=== PATIENT | male | born 1990 | race Caucasian/White ===

== ENCOUNTER 2024-03-25 18:32 | Emergency (ER) | payer OTHER, SELFPAY ==
[2024-03-25 18:33] VITALS: BP 167/101; PULSE 114; RESP 18; TEMP 37.4; O2SAT 98; BMI 45.1
[2024-03-25 19:34] LABS: Absolute Lymphocyte Count 0.83 X10^3/uL (0.83-4.51); Absolute Neutrophil Count 7.6 X10^3/uL (2.0-7.7); Basophil# 0.08 X10^3/uL; Basophil% 0.8 % (0-1); Eosinophil# 0.03 X10^3/uL; Eosinophils% 0.3 % (0-5); Hematocrit 46.2 % (40-54); Hemoglobin 15.5 g/dL (13.0-16.5); Lymphocyte # 0.83 X10^3/ul (0.83-4.51); Lymphocyte % 8.6 % (19-41); Mean Corp Hgb Conc 33.5 g/dL (32-36); Mean Corpuscular Hgb 27.6 pg (27.0-32.0); Mean Corpuscular Volume 82.2 fL (80-94); Mean Platelet Vol. 10.9 fl (6.2-12.0); Monocyte# 1.08 X10^3/uL; Monocyte% 11.2 % (0-10); NRBC Flagged by Analyzer 0 % (0-5); Neutrophil % 78.9 % (47-70); Platelet Count 307 K/mm3 (150-450); RBC Distribution Width CV 13.2 % (11.6-14.6); RBC Distribution Width SD 39.5 fl (35.1-43.9); Red Blood Count 5.62 M/mm3 (4.6-6.2); White Blood Count 9.6 K/mm3 (4.4-11.0)
[2024-03-25] MEDS: 0.9% Normal Saline (1000mL) 1,000 ML 999 ML IV (19:37)
[2024-03-25 19:51] LABS: AST(SGOT) 16 U/L (15-37); Alanine Aminotransfer ALT/SGPT 27 U/L (16-61); Albumin, Serum 4.2 g/dL (3.2-5.0); Alkaline Phosphatase 67 U/L (45-117); Anion Gap 7 (5-15); BUN 11 mg/dL (7-18); BUN/Creat Ratio 9.9 RATIO (10-20); Calcium,Total 9.1 mg/dL (8.5-10.1); Chloride 102 mmol/L (98-107); Creatinine, Serum 1.11 mg/dL (0.70-1.30); EST Glomerular Filtration Rate 81 mL/min (>60); Est Glom Filt Rate - Afr Amer 98 mL/min (>60); Estimated Creatinine Clearance 135.04 ml/min; Glucose 98 mg/dL (74-106); Potassium 3.8 mmol/L (3.5-5.1); Protein, Total 8.2 g/dL (6.4-8.2); Sodium Level 134 mmol/L (136-145)
--- NOTE | 2024-03-25 19:54 | ED.VIS.GI ---
HPI HPI - GI History of Present Illness Chief Complaint: Abd Pain Narrative Narrative: Patient decided to start taking [id number] iron supplementation a couple weeks ago just to see if it made him feel better. He states that 2 days ago he started seeing black diarrhea stools although those are gone now, today he has been having diarrhea that is light brown with some occasional red flecks in it, and he has been having periumbilical abdominal cramping off and on throughout the day that is currently present. He had some red peppers in his food last night. An episode of nausea but has had no vomiting. Developed a fever later today. No respiratory symptoms. No known sick contacts with any of this. No recent travel out of the region, no recent antibiotics, no history of C. difficile. He ate some brautwurst recently but he measured the internal temperature to 165 before he ate them, no other suspicious food intake. [facility] Medical History no medical history Home Medications ?Medication ?Instructions ?Recorded ?Last Taken ?Type ciprofloxacin HCl 500 mg tablet 500 mg PO BID #6 TABLETS 03/25/24 Unknown Rx ferrous sulfate 325 mg (65 mg 325 mg PO DAILY 03/25/24 Unknown History iron) tablet (Feosol) promethazine 25 mg tablet 25 mg PO Q6H PRN PRN Nausea #10 03/25/24 Unknown Rx TABLETS Allergy/AdvReac Type Severity Reaction Status Date / Time No Known Allergies Allergy Verified 03/25/24 18:37 Surgical History no surgical history Social History Smoking Status: Never smoker [facility] ED Constitutional Constitutional ED: Reports chills and fever(s) Eyes Eyes: Denies change in vision or diplopia ENT ENT ED: Denies rhinorrhea or sore throat Cardiovascular Cardiovascular: Denies chest pain or palpitations Respiratory/Chest Respiratory/Chest: Denies cough or dyspnea Gastrointestinal Gastrointestinal: Reports abdominal pain, diarrhea and melena; Denies nausea or vomiting Genitourinary Genitourinary ED: Denies dysuria or hematuria Musculoskeletal Musculoskeletal: Denies back pain or neck pain Integumentary Denies abscess or rash Neurologic Neurologic: Denies headache(s), paresthesias or weakness Psychiatric Psychiatric: Denies anxiety or suicidal thoughts EXAM Physical Exam Const Vital Signs: 03/25/24 18:33 03/25/24 20:33 Temperature 99.4 F H Temperature Source Oral Pulse Rate 114 H 99 Respiratory Rate 18 16 Blood Pressure 167/101 H 155/97 H Blood Pressure Mean 123 116 Pulse Ox 98 98 Oxygen Delivery Method Room Air Room Air Positive well nourished, well developed and obese General Appearance ED: well developed and NAD Nutritional Appearance: obese HEENT Reports moist mucous membranes normocephalic and atraumatic Eyes PERRL and EOMs intact bilaterally Neck full ROM and supple Resp normal respiratory effort and clear to auscultation bilaterally Cardio regular rate, regular rhythm and no murmurs GI non-tender and non-distended Auscultation: normoactive bowel sounds Palpation: soft Back/Spine no CVA tenderness General Back: other FROM Extremity normal to inspection General Extremety ED: Negative for edema, pulses abnormal or tenderness General Extremity: Negative for edema or pulses abnormal Neuro oriented x3, CN's II-XII intact bilaterally and no sensory deficits noted Sensorium / Orientation: awake and alert Motor Exam: strength 5/5 throughout Psych mental status grossly normal and thought process normal Skin no rashes or lesions noted and no wounds MDM MDM MDM Narrative Medical decision making narrative: Patient was given IV fluids while we obtained a workup, and he provided diarrhea which I sent for enteric bacterial panel and Hemoccult. He did not have gross blood but the Hemoccult is positive suggesting what he saw earlier was not deep blood. He had 2 bouts of diarrhea after the specimen he provided here in the ER within a couple hours. His tachycardia normalized with the IV fluids, and he has a low-grade temperature. I think this is probably an infectious invasive enteritis. His fecal white blood cell smear came back positive supporting that. The enteric bacterial panel will not be performed during this day, it will be done tomorrow. Therefore I think treating him with empiric Cipro is reasonable. Discussed avoiding antidiarrheals for now until we know more with the enteric panel, it is certainly possible this is norovirus which there has been a relative epidemic of in the night states recently, in that case I would discontinue the Cipro, and he was advised to drink plenty of fluids and eat yogurt or take a probiotic while on the antibiotic and having diarrhea. Also while in the emergency department he became nauseated and vomited once when prescribed him some Phenergan as well. Lab Data Attestation: I reviewed the patient's lab results. Labs: Laboratory Results - last 24 hr 03/25/24 03/25/24 18:58 21:04 WBC 9.6 RBC 5.62 Hgb 15.5 Hct 46.2 MCV 82.2 MCH 27.6 MCHC 33.5 RDW Std Deviation 39.5 RDW Coeff of Mao 13.2 Plt Count 307 MPV 10.9 Immature Gran % (Auto) 0.200 Neut % (Auto) 78.9 H Lymph % (Auto) 8.6 L Meigs % (Auto) 11.2 H Eos % (Auto) 0.3 Baso % (Auto) 0.8 Absolute Neuts (auto) 7.6 Absolute Lymphs (auto) 0.83 Nucleated RBC % 0 Sodium 134 L Potassium 3.8 Chloride 102 Carbon Dioxide 25.0 Anion Gap 7 BUN 11 Creatinine 1.11 Estim Creat Clear Calc 135.04 Est GFR (MDRD) Af Amer 98 Est GFR (MDRD) Non-Af 81 BUN/Creatinine Ratio 9.9 L Glucose 98 Calcium 9.1 Total Bilirubin 0.70 AST 16 ALT 27 Alkaline Phosphatase 67 Total Protein 8.2 Albumin 4.2 Globulin 4.0 Albumin/Globulin Ratio 1.0 Urine Color Yellow Urine Clarity Clear Urine pH 6.0 Ur Specific [place] 1.015 Urine Protein 30 H Urine Glucose (UA) Normal Urine Ketones 50 H Urine Occult Blood Negative Urine Nitrite Negative Urine Bilirubin Negative Urine Urobilinogen Normal Ur Leukocyte Esterase Negative Urine RBC 0 SEEN Urine WBC 0 SEEN Ur Squamous Epith Cells 0 SEEN Urine Bacteria 1+ Urine Mucus 1+ Discharge Plan Triage Chief Complaint: Abd Pain Other Complaint: Diarrhea ED Provider: Noe Canchola Dx/Rx/DC Orders Clinical Impression: Gastroenteritis Instructions: ED FOOD POIS or G-ENTERITIS [id number] Prescriptions: New ciprofloxacin HCl 500 mg tablet 500 mg PO BID Qty: 6 0RF promethazine 25 mg tablet 25 mg PO Q6H PRN PRN (Reason: Nausea) Qty: 10 0RF No Action ferrous sulfate [Feosol] 325 mg (65 mg iron) tablet 325 mg PO DAILY Primary Care Provider: Care Physician,No Primary Referrals: Doctor,Your [Non-Staff] - 3-5 Days if not improving Activity Restrictions/Additional Instructions: Avoid Imodium or other antidiarrheals until told otherwise by your doctor. Eat yogurt and/or probiotic daily until diarrhea gone. Drink plenty of fluids. Print Language: Mauritanian Disposition Disposition: Home, Self Care
[2024-03-25 20:33] VITALS: BP 155/97; PULSE 99; RESP 16; O2SAT 98
[2024-03-25 21:09] LABS: Red Blood Cells-Urine 0 SEEN /hpf (0-5); Squamous Epithelial Cells - UA 0 SEEN /hpf (0-5); White Blood Cells 0 SEEN /hpf (0-5)
[2024-03-25 21:11] LABS: Color, Urine Yellow (Yellow); Glucose, Dipstick Normal (Normal); Ketone-Dipstick 50 mg/dl (Negative); Leukocyte Esterase-Dipstick Negative /ul (Negative); Nitrite-Dipstick Negative (Negative); Occult Blood-Urine Negative /ul (Negative); Protein-Dipstick 30 mg/dl (Negative); Specific Gravity, Urine 1.015 (1.002-1.030); Urine Bilirubin Dipstick Negative (Negative); Urine Clarity Clear (Clear); Urine Urobilinogen Normal (Normal)
[2024-03-25 21:25] LABS: Bacteria 1+ /hpf (None Seen); Mucous, Urine 1+ /hpf (<or=2+)
[2024-03-25] MEDS: Ciprofloxacin 500 MG Tablet PO (22:23)
== END 2024-03-25 22:36 | disposition home or self-care (01) ==
PROVIDERS: Emergency Provider Emergency Medicine; Visit Provider Emergency Medicine
DX: K52.9 Noninfective gastroenteritis and colitis, unspecified (principal)
CPT/HCPCS: 80053; 81001; 82274; 83630; 85025; 87506; 96360; 99283; A4216